=== PATIENT | female | born 1955 | race Caucasian/White ===

== ENCOUNTER 2017-03-03 08:24 | Outpatient (CLI) ==
--- NOTE | 2017-03-03 09:19 | US ---
EXAM: Abdominal ultrasound limited HISTORY: Hepatic steatosis COMPARISON: CT abdomen pelvis 07/27/2010 and ultrasound 01/04/2010 TECHNIQUE: Sonographic and limited Doppler evaluation of the right upper quadrant was performed. FINDINGS: The liver is increased in echogenicity and measures 14.4 cm. The portal vein is patent. The gallbladder demonstrates no stones or sludge. The gallbladder wall measures 0.3 cm in thicknes s. Common bile duct is unremarkable and measures 0.4 cm in diameter. The pancreas is unremarkable i n appearance. Right kidney measures 11.3 x 6.3 x 4.4 cm with cortical thickness of 2.1 cm. IMPRESSION: 1. Increased echogenicity of the liver suggestive of hepatic steatosis. 2. Remaining soft tissues in the upper abdomen are unremarkable.
== END 2017-03-03 08:25 | disposition home or self-care (01) ==
LOC: RAD 08:24
PROVIDERS: ATTEND Family Medicine
DX: K76.0 Fatty (change of) liver, not elsewhere classified (principal); R74.8 Abnormal levels of other serum enzymes

== ENCOUNTER 2018-09-14 16:14 | Outpatient (CLI) ==
--- NOTE | 2018-09-15 09:49 | DI ---
Exam: Two views of the chest. Comparison: 07/13/2012. Reason for exam: Asthma. FINDINGS: No pneumothorax, pleural effusion, or focal consolidation. The cardiac silhouette is not enlarged. The imaged osseous structures appear grossly unremarkable without acute fracture. Impression: No acute cardiopulmonary process.
== END 2018-09-14 16:15 | disposition home or self-care (01) ==
LOC: RAD 16:14
PROVIDERS: ATTEND Family Medicine
DX: J45.41 Moderate persistent asthma with (acute) exacerbation (principal)